=== PATIENT | male | born 1975 | race Two or more races ===

== ENCOUNTER 2022-03-24 12:53 | Emergency (ER) | payer MEDICARE, MEDICAID ==
[2022-03-24 14:35] LABS: ESTIMATED GFR 76 mL/min (>60)
[2022-03-24] MEDS ORDERED: 50% Dextrose in Water 50 ML Syringe IVPUSH PRN (14:43)
[2022-03-24] MEDS ORDERED: Glucagon,Human Recombinant 1 MG Vial IM PRN (14:43)
[2022-03-24] MEDS: Sodium Chloride 0.9% 1,000 ML IV ONE (14:55)
[2022-03-24 15:00] LABS: HEMOGLOBIN A1C 11.5 % (<5.7)
[2022-03-24] MEDS: VANCOmycin 2 GM/400 ML 2 GM in Premix Bag 1 BAG IV SCH (15:02)
[2022-03-24] MEDS: Insulin Regular, Human 100 Units/ML 3 ML Vial IV ONE (15:19)
[2022-03-24] MEDS: Fluconazole 150 MG Tab PO ONE (15:35)
[2022-03-24] MEDS: Piperacillin/Tazobactam 4.5 GM in Sodium Chloride 0.9% 100 ML IV SCH (15:45)
== END 2022-03-24 16:57 ==
LOC: FB.ED 12:53
DX: L03.116 Cellulitis of left lower limb (principal); L03.126 Acute lymphangitis of left lower limb; E11.621 Type 2 diabetes mellitus with foot ulcer; L97.529 Non-pressure chronic ulcer of other part of left foot with unspecified severity; L97.519 Non-pressure chronic ulcer of other part of right foot with unspecified severity; E11.65 Type 2 diabetes mellitus with hyperglycemia; E87.1 Hypo-osmolality and hyponatremia; E88.09 Other disorders of plasma-protein metabolism, not elsewhere classified; D72.829 Elevated white blood cell count, unspecified; R74.8 Abnormal levels of other serum enzymes; E11.42 Type 2 diabetes mellitus with diabetic polyneuropathy; Z20.822 Contact with and (suspected) exposure to COVID-19
CPT/HCPCS: 36415; 73630-LT; 73630-RT; 80053; 83036; 83605; 85025; 86140; 87040; 87070; 87205; 96365; 96366; 96368; 99285-25; A9270-GY; J1815-GY; J2543; J3370; J7030; U0002

== ENCOUNTER 2022-04-27 10:01 | Inpatient (IN) | payer MEDICARE, OTHER, MEDICAID ==
[2022-04-27] MEDS ORDERED: Docusate Sodium 100 MG Cap PO PRN (15:45)
[2022-04-27] MEDS ORDERED: 50% Dextrose in Water 50 ML Syringe IVPUSH PRN (15:45)
[2022-04-27] MEDS ORDERED: Glucagon,Human Recombinant 1 MG Vial IM PRN (15:45)
[2022-04-27] MEDS ORDERED: Ondansetron 4 MG Tab.DIS PO PRN (15:54)
[2022-04-27] MEDS ORDERED: Gabapentin 300 MG Cap PO ONE (16:00)
[2022-04-27] MEDS ORDERED: Insulin Lispro 100 Unit/ML 3 ML KwikPen SUBCUT ONE (17:10)
[2022-04-27] MEDS: Insulin Lispro 100 Unit/ML 3 ML KwikPen SUBCUT SCH (17:37)
[2022-04-27] MEDS: Celecoxib 200 MG Cap PO SCH (21:13)
[2022-04-27] MEDS: Gabapentin 300 MG Cap PO SCH (21:13)
[2022-04-27] MEDS: atorvaSTATin 40 MG Tab PO SCH (21:13)
[2022-04-27] MEDS: Enoxaparin 40 MG/0.4 ML Syringe SUBCUT SCH (21:14)
[2022-04-27] MEDS ORDERED: Insulin Glargine,Human Rec. Analog 100 Units/ML 3 ML Pen SUBCUT ONE (21:17)
[2022-04-27] MEDS: Insulin Glargine,Human Rec. Analog 100 Units/ML 3 ML Pen SUBCUT SCH (21:20)
[2022-04-28] MEDS: Pantoprazole 40 MG Tab.CR PO SCH (06:39)
[2022-04-28] MEDS: Insulin Lispro 100 Unit/ML 3 ML KwikPen SUBCUT SCH ×3 (08:36→17:18)
[2022-04-28] MEDS: Celecoxib 200 MG Cap PO SCH ×2 (08:37→20:03)
[2022-04-28] MEDS: Polyethylene Glycol 3350 Powder 17 GM Packet PO SCH (08:37)
[2022-04-28] MEDS: Cholecalciferol (Vitamin D3) 25 MCG Tab PO SCH (08:37)
[2022-04-28] MEDS: Aspirin 81 MG Tab.EC PO SCH (08:37)
[2022-04-28] MEDS: Ascorbic Acid 500 MG Tab PO SCH (08:37)
[2022-04-28] MEDS: Gabapentin 300 MG Cap PO SCH ×3 (08:41→20:07)
[2022-04-28] MEDS: Enoxaparin 40 MG/0.4 ML Syringe SUBCUT SCH (20:04)
[2022-04-28] MEDS: atorvaSTATin 40 MG Tab PO SCH (20:04)
[2022-04-28] MEDS: Insulin Glargine,Human Rec. Analog 100 Units/ML 3 ML Pen SUBCUT SCH (20:08)
[2022-04-29] MEDS: Pantoprazole 40 MG Tab.CR PO SCH (05:11)
[2022-04-29] MEDS: Insulin Lispro 100 Unit/ML 3 ML KwikPen SUBCUT SCH ×3 (08:12→17:51)
[2022-04-29] MEDS: Celecoxib 200 MG Cap PO SCH ×2 (08:13→20:10)
[2022-04-29] MEDS: Ascorbic Acid 500 MG Tab PO SCH (08:13)
[2022-04-29] MEDS: Cholecalciferol (Vitamin D3) 25 MCG Tab PO SCH (08:13)
[2022-04-29] MEDS: Aspirin 81 MG Tab.EC PO SCH (08:13)
[2022-04-29] MEDS: Polyethylene Glycol 3350 Powder 17 GM Packet PO SCH (08:13)
[2022-04-29] MEDS: Gabapentin 300 MG Cap PO SCH ×3 (08:21→20:10)
[2022-04-29] MEDS: atorvaSTATin 40 MG Tab PO SCH (20:10)
[2022-04-29] MEDS: Insulin Glargine,Human Rec. Analog 100 Units/ML 3 ML Pen SUBCUT SCH (20:11)
[2022-04-30] MEDS: Pantoprazole 40 MG Tab.CR PO SCH (05:25)
[2022-04-30] MEDS: Insulin Lispro 100 Unit/ML 3 ML KwikPen SUBCUT SCH ×3 (08:06→17:49)
[2022-04-30] MEDS: Polyethylene Glycol 3350 Powder 17 GM Packet PO SCH (08:28)
[2022-04-30] MEDS: Celecoxib 200 MG Cap PO SCH ×2 (08:28→20:32)
[2022-04-30] MEDS: Ascorbic Acid 500 MG Tab PO SCH (08:29)
[2022-04-30] MEDS: Aspirin 81 MG Tab.EC PO SCH (08:29)
[2022-04-30] MEDS: Cholecalciferol (Vitamin D3) 25 MCG Tab PO SCH (08:29)
[2022-04-30] MEDS: Gabapentin 300 MG Cap PO SCH ×3 (08:59→20:32)
[2022-04-30] MEDS: Insulin Glargine,Human Rec. Analog 100 Units/ML 3 ML Pen SUBCUT SCH (20:32)
[2022-04-30] MEDS: atorvaSTATin 40 MG Tab PO SCH (20:32)
[2022-05-01] MEDS: Pantoprazole 40 MG Tab.CR PO SCH (06:35)
[2022-05-01] MEDS: Insulin Lispro 100 Unit/ML 3 ML KwikPen SUBCUT SCH ×3 (07:35→18:19)
[2022-05-01] MEDS: Celecoxib 200 MG Cap PO SCH ×2 (08:45→22:01)
[2022-05-01] MEDS: Aspirin 81 MG Tab.EC PO SCH (08:45)
[2022-05-01] MEDS: Gabapentin 300 MG Cap PO SCH ×3 (08:45→22:03)
[2022-05-01] MEDS: Ascorbic Acid 500 MG Tab PO SCH (08:45)
[2022-05-01] MEDS: Cholecalciferol (Vitamin D3) 25 MCG Tab PO SCH (08:45)
[2022-05-01] MEDS: Polyethylene Glycol 3350 Powder 17 GM Packet PO SCH (08:45)
[2022-05-01] MEDS: atorvaSTATin 40 MG Tab PO SCH (22:01)
[2022-05-01] MEDS: Insulin Glargine,Human Rec. Analog 100 Units/ML 3 ML Pen SUBCUT SCH (22:04)
[2022-05-02] MEDS: Pantoprazole 40 MG Tab.CR PO SCH (06:26)
[2022-05-02] MEDS: Insulin Lispro 100 Unit/ML 3 ML KwikPen SUBCUT SCH ×3 (07:52→18:22)
[2022-05-02] MEDS: Celecoxib 200 MG Cap PO SCH (09:08)
[2022-05-02] MEDS: Ascorbic Acid 500 MG Tab PO SCH (09:09)
[2022-05-02] MEDS: Polyethylene Glycol 3350 Powder 17 GM Packet PO SCH (09:09)
[2022-05-02] MEDS: Cholecalciferol (Vitamin D3) 25 MCG Tab PO SCH (09:09)
[2022-05-02] MEDS: Aspirin 81 MG Tab.EC PO SCH (09:09)
[2022-05-02] MEDS: Gabapentin 300 MG Cap PO SCH ×3 (09:11→21:12)
[2022-05-02] MEDS ORDERED: Polyethylene Glycol 3350 Powder 17 GM Packet PO PRN (09:44)
[2022-05-02] MEDS: Insulin Glargine,Human Rec. Analog 100 Units/ML 3 ML Pen SUBCUT SCH (21:05)
[2022-05-02] MEDS: atorvaSTATin 40 MG Tab PO SCH (21:13)
[2022-05-03] MEDS: Pantoprazole 40 MG Tab.CR PO SCH (06:52)
[2022-05-03] MEDS: Insulin Lispro 100 Unit/ML 3 ML KwikPen SUBCUT SCH ×3 (07:49→17:56)
[2022-05-03] MEDS: Ascorbic Acid 500 MG Tab PO SCH (09:20)
[2022-05-03] MEDS: Cholecalciferol (Vitamin D3) 25 MCG Tab PO SCH (09:20)
[2022-05-03] MEDS: Aspirin 81 MG Tab.EC PO SCH (09:20)
[2022-05-03] MEDS: Gabapentin 300 MG Cap PO SCH ×3 (09:20→20:40)
[2022-05-03] MEDS ORDERED: Insulin Lispro 100 Unit/ML 3 ML KwikPen SUBCUT ONE (11:42)
[2022-05-03] MEDS: Insulin Glargine,Human Rec. Analog 100 Units/ML 3 ML Pen SUBCUT SCH (20:33)
[2022-05-03] MEDS ORDERED: Insulin Glargine,Human Rec. Analog 100 Units/ML 3 ML Pen SUBCUT ONE (20:35)
[2022-05-03] MEDS: atorvaSTATin 40 MG Tab PO SCH (20:40)
[2022-05-04] MEDS: Pantoprazole 40 MG Tab.CR PO SCH (06:31)
[2022-05-04] MEDS: Aspirin 81 MG Tab.EC PO SCH (08:34)
[2022-05-04] MEDS: Ascorbic Acid 500 MG Tab PO SCH (08:49)
[2022-05-04] MEDS: Cholecalciferol (Vitamin D3) 25 MCG Tab PO SCH (08:49)
[2022-05-04] MEDS: Insulin Lispro 100 Unit/ML 3 ML KwikPen SUBCUT SCH ×3 (08:51→17:49)
[2022-05-04] MEDS: Gabapentin 300 MG Cap PO SCH ×3 (08:51→20:27)
[2022-05-04] MEDS ORDERED: Bupivacaine 0.5% 30 ML SDV NERVRT ONE (10:30)
[2022-05-04] MEDS ORDERED: Lidocaine 1% with EPINEPHrine 1:100,000 20 ML MDV NERVRT ONE (10:30)
[2022-05-04] MEDS ORDERED: fentaNYL 100 MCG/2 ML SDV IV ONE (13:09)
[2022-05-04] MEDS ORDERED: Midazolam 1 MG/ML 2 ML SDV IV ONE (13:09)
[2022-05-04] MEDS: atorvaSTATin 40 MG Tab PO SCH (20:14)
[2022-05-04] MEDS: Insulin Glargine,Human Rec. Analog 100 Units/ML 3 ML Pen SUBCUT SCH (20:15)
[2022-05-04] MEDS: Acetaminophen 500 MG Tab PO PRN (20:27)
[2022-05-05] MEDS: Pantoprazole 40 MG Tab.CR PO SCH (05:38)
[2022-05-05] MEDS: Insulin Lispro 100 Unit/ML 3 ML KwikPen SUBCUT SCH ×3 (08:25→17:54)
[2022-05-05] MEDS: Gabapentin 300 MG Cap PO SCH ×3 (08:28→21:48)
[2022-05-05] MEDS: Aspirin 81 MG Tab.EC PO SCH (08:28)
[2022-05-05] MEDS: Cholecalciferol (Vitamin D3) 25 MCG Tab PO SCH (08:28)
[2022-05-05] MEDS: Ascorbic Acid 500 MG Tab PO SCH (08:28)
[2022-05-05] MEDS: atorvaSTATin 40 MG Tab PO SCH (21:49)
[2022-05-05] MEDS: Insulin Glargine,Human Rec. Analog 100 Units/ML 3 ML Pen SUBCUT SCH (21:49)
[2022-05-06] MEDS: Pantoprazole 40 MG Tab.CR PO SCH (06:05)
[2022-05-06] MEDS: Insulin Lispro 100 Unit/ML 3 ML KwikPen SUBCUT SCH ×3 (08:05→18:07)
[2022-05-06] MEDS: Ascorbic Acid 500 MG Tab PO SCH (08:06)
[2022-05-06] MEDS: Aspirin 81 MG Tab.EC PO SCH (08:06)
[2022-05-06] MEDS: Cholecalciferol (Vitamin D3) 25 MCG Tab PO SCH (08:06)
[2022-05-06] MEDS: Gabapentin 300 MG Cap PO SCH ×3 (08:10→21:25)
[2022-05-06] MEDS: atorvaSTATin 40 MG Tab PO SCH (21:25)
[2022-05-06] MEDS: Acetaminophen 500 MG Tab PO PRN (21:26)
[2022-05-06] MEDS: Insulin Glargine,Human Rec. Analog 100 Units/ML 3 ML Pen SUBCUT SCH (21:27)
[2022-05-07] MEDS: Pantoprazole 40 MG Tab.CR PO SCH (06:18)
[2022-05-07] MEDS: Aspirin 81 MG Tab.EC PO SCH (08:20)
[2022-05-07] MEDS: Ascorbic Acid 500 MG Tab PO SCH (08:29)
[2022-05-07] MEDS: Cholecalciferol (Vitamin D3) 25 MCG Tab PO SCH (08:29)
[2022-05-07] MEDS: Insulin Lispro 100 Unit/ML 3 ML KwikPen SUBCUT SCH ×3 (08:30→18:03)
[2022-05-07] MEDS: Gabapentin 300 MG Cap PO SCH (08:34)
[2022-05-07] MEDS: atorvaSTATin 40 MG Tab PO SCH (21:22)
[2022-05-07] MEDS: Insulin Glargine,Human Rec. Analog 100 Units/ML 3 ML Pen SUBCUT SCH (21:23)
[2022-05-08] MEDS: Pantoprazole 40 MG Tab.CR PO SCH (05:47)
[2022-05-08] MEDS: Cholecalciferol (Vitamin D3) 25 MCG Tab PO SCH (08:08)
[2022-05-08] MEDS: Ascorbic Acid 500 MG Tab PO SCH (08:09)
[2022-05-08] MEDS: Aspirin 81 MG Tab.EC PO SCH (08:09)
[2022-05-08] MEDS: Insulin Lispro 100 Unit/ML 3 ML KwikPen SUBCUT SCH ×3 (08:09→18:06)
[2022-05-08] MEDS ORDERED: Insulin Lispro 100 Unit/ML 3 ML KwikPen SUBCUT ONE (18:04)
[2022-05-08] MEDS: atorvaSTATin 40 MG Tab PO SCH (20:29)
[2022-05-08] MEDS: Insulin Glargine,Human Rec. Analog 100 Units/ML 3 ML Pen SUBCUT SCH (20:30)
[2022-05-09] MEDS: Pantoprazole 40 MG Tab.CR PO SCH (05:14)
[2022-05-09] MEDS: Cholecalciferol (Vitamin D3) 25 MCG Tab PO SCH (08:30)
[2022-05-09] MEDS: Insulin Lispro 100 Unit/ML 3 ML KwikPen SUBCUT SCH ×3 (08:30→17:55)
[2022-05-09] MEDS: Ascorbic Acid 500 MG Tab PO SCH (08:30)
[2022-05-09] MEDS: Aspirin 81 MG Tab.EC PO SCH (08:30)
[2022-05-09] MEDS: atorvaSTATin 40 MG Tab PO SCH (20:10)
[2022-05-09] MEDS ORDERED: Insulin Glargine,Human Rec. Analog 100 Units/ML 3 ML Pen SUBCUT ONE (20:14)
[2022-05-09] MEDS: Insulin Glargine,Human Rec. Analog 100 Units/ML 3 ML Pen SUBCUT SCH (20:17)
[2022-05-10] MEDS: Pantoprazole 40 MG Tab.CR PO SCH (05:19)
[2022-05-10] MEDS: Aspirin 81 MG Tab.EC PO SCH (07:59)
[2022-05-10] MEDS: Cholecalciferol (Vitamin D3) 25 MCG Tab PO SCH (08:00)
[2022-05-10] MEDS: Ascorbic Acid 500 MG Tab PO SCH (08:00)
[2022-05-10] MEDS: Insulin Lispro 100 Unit/ML 3 ML KwikPen SUBCUT SCH ×3 (08:01→17:53)
[2022-05-10] MEDS: atorvaSTATin 40 MG Tab PO SCH (20:57)
[2022-05-10] MEDS: Insulin Glargine,Human Rec. Analog 100 Units/ML 3 ML Pen SUBCUT SCH (20:57)
[2022-05-11] MEDS: Pantoprazole 40 MG Tab.CR PO SCH (05:18)
[2022-05-11] MEDS: Aspirin 81 MG Tab.EC PO SCH ×2 (06:48→09:52)
[2022-05-11] MEDS: Ascorbic Acid 500 MG Tab PO SCH ×2 (06:49→09:52)
[2022-05-11] MEDS: Cholecalciferol (Vitamin D3) 25 MCG Tab PO SCH ×2 (06:50→09:53)
[2022-05-11] MEDS: Insulin Lispro 100 Unit/ML 3 ML KwikPen SUBCUT SCH ×4 (06:54→17:57)
[2022-05-11] MEDS: atorvaSTATin 40 MG Tab PO SCH (20:42)
[2022-05-11] MEDS: Insulin Glargine,Human Rec. Analog 100 Units/ML 3 ML Pen SUBCUT SCH (20:43)
[2022-05-12] MEDS: Pantoprazole 40 MG Tab.CR PO SCH (05:26)
[2022-05-12] MEDS: Aspirin 81 MG Tab.EC PO SCH (08:51)
[2022-05-12] MEDS: Ascorbic Acid 500 MG Tab PO SCH (08:52)
[2022-05-12] MEDS: Cholecalciferol (Vitamin D3) 25 MCG Tab PO SCH (08:52)
[2022-05-12] MEDS: Insulin Lispro 100 Unit/ML 3 ML KwikPen SUBCUT SCH ×2 (08:52→11:25)
== END 2022-05-12 13:28 | disposition home health service (06) | DRG 560 ==
LOC: FB.MS 14:42
PROVIDERS: ADMIT Student in an Organized Health Care Education/Training Program; ATTEND Family Medicine
PROC: 0J9P0ZZ Drainage of Left Lower Leg Subcutaneous Tissue and Fascia, Open Approach (ICD-10-PCS; principal; 2022-04-27)
DX: Z47.81 Encounter for orthopedic aftercare following surgical amputation (principal); T81.31XA Disruption of external operation (surgical) wound, not elsewhere classified, initial encounter; E66.01 Morbid (severe) obesity due to excess calories; E11.51 Type 2 diabetes mellitus with diabetic peripheral angiopathy without gangrene; E11.22 Type 2 diabetes mellitus with diabetic chronic kidney disease; N18.9 Chronic kidney disease, unspecified; E11.65 Type 2 diabetes mellitus with hyperglycemia; I12.9 Hypertensive chronic kidney disease with stage 1 through stage 4 chronic kidney disease, or unspecified chronic kidney disease; G89.29 Other chronic pain; M54.9 Dorsalgia, unspecified; E11.40 Type 2 diabetes mellitus with diabetic neuropathy, unspecified; E11.621 Type 2 diabetes mellitus with foot ulcer; Z20.822 Contact with and (suspected) exposure to COVID-19; E87.6 Hypokalemia; Y83.8 Other surgical procedures as the cause of abnormal reaction of the patient, or of later complication, without mention of misadventure at the time of the procedure; F41.9 Anxiety disorder, unspecified; F32.A Depression, unspecified; F43.10 Post-traumatic stress disorder, unspecified; F60.3 Borderline personality disorder; Z79.4 Long term (current) use of insulin; Z79.82 Long term (current) use of aspirin; Z79.899 Other long term (current) drug therapy; Z87.891 Personal history of nicotine dependence; Z89.512 Acquired absence of left leg below knee; Z68.39 Body mass index [BMI] 39.0-39.9, adult
CPT/HCPCS: 11042; 82947; 97110-GP; 97116-GP; 97161-GP; 97165-GO; 97530-GO; 97530-GP; 99305; 99307; 99309; 99315; A9270-GY; J1650; J1815; J1815-GY; J2250; J3010; J3490; U0002

== ENCOUNTER 2022-06-03 03:39 | Emergency (ER) | payer MEDICARE, OTHER ==
[2022-06-03] MEDS ORDERED: Lidocaine 2% 20 ML MDV INFILT ONE (03:40)
== END 2022-06-03 05:50 ==
LOC: FB.ED 03:39
DX: T81.33XA Disruption of traumatic injury wound repair, initial encounter (principal); S81.812A Laceration without foreign body, left lower leg, initial encounter; E11.40 Type 2 diabetes mellitus with diabetic neuropathy, unspecified; I10 Essential (primary) hypertension; E66.9 Obesity, unspecified; Z68.38 Body mass index [BMI] 38.0-38.9, adult; Z79.82 Long term (current) use of aspirin; Z79.4 Long term (current) use of insulin; Z79.899 Other long term (current) drug therapy; W07.XXXA Fall from chair, initial encounter
CPT/HCPCS: 12004; 99285